=== PATIENT | female | born 1955 | race Caucasian/White ===

== ENCOUNTER 2020-09-27 13:27 | Emergency (ER) | payer MEDICARE, OTHER ==
[~2020-09-27 13:27] MED LIST: ASPIRIN EC81 MG PO; CALCITRATE + V1 EACH PO; CELEXA20 MG PO; HYDROCODON-ACE1 EAC6 PO; ISOSORBIDE MONO30 MG PO; LIPITOR20 MG PO; PLAVIX75 MG PO; REMERON15 MG PO; REQUIP1 MG PO; TENORMIN50 MG PO
[2020-09-27 13:54] LABS: BASOPHIL 0.4 % (0-2); EOSINOPHIL 0.5 % (0-7); HCT 23.5 % (37.0-47.0); HGB 7.1 g/dl (12.5-16.0); LYMPHOCYTE 11.9 % (15-48); MCH 28.5 pg (25.0-31.0); MCHC 30.2 g/dL (32.0-36.0); MCV 94.4 fL (78.0-100.0); MONOCYTE 6.3 % (0-12); MPV 12.2 fL (6.0-9.5); NEUTROPHIL 78.2 % (41-80); NRBC 0; PLT 148 K/uL (150-400); RBC 2.49 M/uL (4.20-5.40); RDW 16.8 % (11.5-14.0); WBC 10.2 K/uL (4.0-10.5)
[2020-09-27 14:02] LABS: INR 1.54 (0.9-1.2); PROTHROMBIN TIME 17.6 SECONDS (11.4-13.6); PTT 42.8 SECONDS (22.2-34.7)
[2020-09-27 14:36] LABS: ALBUMIN 1.4 g/dL (3.4-5.0); BILIRUBIN - TOTAL 0.6 mg/dL (0.2-1.0); BUN/CREAT RATIO (CALC) 5.7 RATIO; CREATININE 2.12 mg/dL (0.51-0.95); GLOBULIN (CALCULATION) 5.3 g/dL; POTASSIUM 3.2 mmol/L (3.5-5.1); TOTAL PROTEIN 6.7 g/dL (6.4-8.2)
[2020-09-27 14:45] LABS: LACTIC ACID 1.1 mmol/L (0.4-1.9); PRO-BNP 9085 pg/mL (<125)
[2020-09-27 16:22] LABS: BILIRUBIN 2+ mg/dL (NEGATIVE); BLOOD 3+ Ery/uL (NEGATIVE); CLARITY CLOUDY (CLEAR); COLOR BROWN (YELLOW); GLUCOSE (U) NORMAL (NORMAL); LEUKOCYTES TRACE Leu/uL (NEGATIVE); NITRITE NEGATIVE (NEGATIVE); PROTEIN 2+ mg/dL (NEGATIVE); UROBILINOGEN 0.2 mg/dL (0.2-1.0)
[2020-09-27 16:33] LABS: BACTERIA 2+; SQUAMOUS EPITHELIAL CELLS 20-50
[2020-09-27] MEDS ORDERED: PROTONIX 40MG T40 MG PO (18:00)
== END 2020-09-27 21:10 | disposition home or self-care (01) ==
LOC: FER 13:27
PROVIDERS: Emergency Medicine
DX: I12.0 Hypertensive chronic kidney disease with stage 5 chronic kidney disease or end stage renal disease (principal); N18.6 End stage renal disease; D63.1 Anemia in chronic kidney disease; E66.9 Obesity, unspecified; Z79.82 Long term (current) use of aspirin; Z79.01 Long term (current) use of anticoagulants; Z88.1 Allergy status to other antibiotic agents; Z91.048 Other nonmedicinal substance allergy status; Z99.2 Dependence on renal dialysis
CPT/HCPCS: 36415; 36430; 71045; 80053; 81001; 82270; 83605; 83880; 84484; 85025; 85610; 85730; 87040; 87088; 93005; J7040; P9016

== ENCOUNTER 2020-11-11 07:39 | Emergency (ER) | payer MEDICARE, OTHER ==
[~2020-11-11 07:39] MED LIST changes: +PROTONIX 40MG T40 MG PO
[2020-11-11 09:14] LABS: BASOPHIL 0.4 % (0-2); EOSINOPHIL 0.4 % (0-7); HCT 23.1 % (37.0-47.0); HGB 7.2 g/dl (12.5-16.0); LYMPHOCYTE 17.4 % (15-48); MCH 30.6 pg (25.0-31.0); MCHC 31.2 g/dL (32.0-36.0); MCV 98.3 fL (78.0-100.0); MONOCYTE 4.3 % (0-12); MPV 11.6 fL (6.0-9.5); NEUTROPHIL 76.6 % (41-80); NRBC 0; PLT 205 K/uL (150-400); RBC 2.35 M/uL (4.20-5.40); RDW 20.9 % (11.5-14.0); WBC 9.5 K/uL (4.0-10.5)
[2020-11-11 09:25] LABS: PROTHROMBIN TIME 48.5 SECONDS (11.4-13.6)
[2020-11-11 09:35] LABS: ALBUMIN 1.4 g/dL (3.4-5.0); BILIRUBIN - TOTAL 0.4 mg/dL (0.2-1.0); BUN/CREAT RATIO (CALC) 4.8 RATIO; CREATININE 4.2 mg/dL (0.51-0.95); POTASSIUM 3.8 mmol/L (3.5-5.1); TOTAL PROTEIN 6.4 g/dL (6.4-8.2)
[2020-11-11 10:22] LABS: INR 5.6 (0.9-1.2)
[2020-11-11 10:41] LABS: LACTIC ACID 2.2 mmol/L (0.4-1.9)
[2020-11-11 12:17] LABS: CORONAVIRUS 2019 SARS-COV-2 NEGATIVE (NEGATIVE); INFLUENZA A NAA NEGATIVE (NEGATIVE)
== END 2020-11-11 20:02 | disposition home or self-care (01) ==
LOC: FER 07:39
PROVIDERS: Emergency Medicine
DX: R07.89 Other chest pain (principal); R79.1 Abnormal coagulation profile; R00.0 Tachycardia, unspecified; R91.8 Other nonspecific abnormal finding of lung field; J90 Pleural effusion, not elsewhere classified; I12.0 Hypertensive chronic kidney disease with stage 5 chronic kidney disease or end stage renal disease; E11.22 Type 2 diabetes mellitus with diabetic chronic kidney disease; N18.6 End stage renal disease; Z79.01 Long term (current) use of anticoagulants; Z99.2 Dependence on renal dialysis; Z88.1 Allergy status to other antibiotic agents; Z88.5 Allergy status to narcotic agent; Z93.3 Colostomy status; Z20.822 Contact with and (suspected) exposure to COVID-19
CPT/HCPCS: 36415; 71045; 71250; 80053; 83605; 84484; 85025; 85610; 87040; 93005; J0696; U0002